=== PATIENT | male | born 1955 | race Hispanic/Latino ===

== ENCOUNTER 2017-07-31 10:19 | Emergency (ER) | payer SELFPAY ==
[~2017-07-31 10:19] MED LIST: ISOVUE-370 76%-LOCM 1 ML ONE
[2017-07-31 10:59] LABS: #Basophils 0.1 thou/uL (0.0-0.2); #Eosinphils 0.2 thou/uL (0.0-0.7); #Lymphocytes 0.8 thou/uL (1.20-3.40); #Monocytes 0.5 thou/uL (0.11-0.59); #Neutrophils 6.3 thou/uL (1.40-6.50); %Basophils 0.8 % (0.0-1.0); %Lymphocytes 9.9 % (21.0-51.0); %Neutrophils 81.3 % (42.0-75.0); Hemoglobin 13.9 g/dL (14.0-18.0); Mean Corpuscular Volume 88.6 fl (80.0-94.0); Mean Platelet Volume 8.3 fL (7.4-10.4); Platelet Count 127 thou/uL (130-400); RBC Distribution Width 12.4 % (11.5-14.5); Red Blood Cell (RBC) Count 4.47 mill/uL (4.70-6.10); White Blood Cell (WBC) Count 7.8 thou/uL (4.8-10.8)
[2017-07-31 11:05] LABS: Prothrombin Time 13.3 SEC (12.0-14.7)
[2017-07-31 11:22] LABS: ALT (SGPT) 45 U/L (8-55); AST (SGOT) 41 U/L (5-34); Alkaline Phosphatase 60 U/L (40-150); Anion Gap 14 mmol/L (10-20); BUN (Urea Nitrogen) 14 mg/dL (8.4-25.7); Bilirubin, Total 0.6 mg/dL (0.2-1.2); Calc. Creatinine Clearance 0 mL/min (70-130); Calcium 9.6 mg/dL (7.8-10.44); Carbon Dioxide 24 mmol/L (23-31); Chloride 101 mmol/L (98-107); Estimated GFR-MDRD 64; Globulin 3.2 g/dL (2.4-3.5); Glucose 227 mg/dL (80-115); Lipase 25 U/L (8-78); Potassium 3.9 mmol/L (3.5-5.1); Protein, Total 7.2 g/dL (5.8-8.1); Sodium 135 mmol/L (136-145)
[2017-07-31] MEDS ORDERED: Adacel (T-DAP) 0.5 ML VIAL ONE (11:31)
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
[2017-07-31] MEDS ORDERED: Bacitracin Zinc 1 Packet ONE (12:35)
== END 2017-07-31 12:30 | disposition home or self-care (01) ==
LOC: ERS 10:19
DX: S01.01XA Laceration without foreign body of scalp, initial encounter (principal); S40.012A Contusion of left shoulder, initial encounter; S80.211A Abrasion, right knee, initial encounter; S80.811A Abrasion, right lower leg, initial encounter; E11.9 Type 2 diabetes mellitus without complications; E78.5 Hyperlipidemia, unspecified; I10 Essential (primary) hypertension; V69.9XXA Occupant (driver) (passenger) of heavy transport vehicle injured in unspecified traffic accident, initial encounter
CPT/HCPCS: 36415; 70450; 71045; 71260; 72125; 74177; 80053; 83690; 85025; 85610; 90471; 90715; 93005; 96360; 96361